=== PATIENT | male | born 1965 | race Caucasian/White ===

== ENCOUNTER 2017-02-14 14:52 | Emergency (ER) | payer OTHER, MEDICAID ==
--- NOTE | 2017-02-14 15:33 | EDPHY ---
H & P Stated Complaint: back pain x 1 wk Time Seen by Provider: 02/14/17 15:32 HPI/ROS: HPI: This is a 51-year-old male who presents with Chief Complaint: back pain x 1 wk Location: Lumbar back Quality: Aching pain Duration: 1 week Signs and Symptoms: No bleeding, no radiation, no numbness, no weakness, no tingling, no incontinence, no decreased range of motion, no dysuria, no groin or testicular pain Timing: Acute on chronic Severity: Mild Context: Patient is homeless and complains of gradual onset of lower back pain described as dull and aching and at times become sharp and severe especially with flexion and bending activities. The pain is nonradiating. He denies any urinary symptoms. He reports that could was not working. He has been using his massage machine daily with only transient relief. He denies any recent history heavy lifting/injury/Trauma. Patient is ambulatory without any deficits and walked to the ER today by himself. Modifying Factors: [place] transient relief Comment: ROS: see HPI Constitutional: No fever, no chills, no weight loss Eyes: No blurred vision Respiratory: No shortness of breath, no cough Cardiovascular: No chest pain Gastrointestinal: No nausea, no vomiting no diarrhea Genitourinary: No dysuria Extremities: No myalgias Neurologic: No weakness, no numbness Skin: No rashes Hematologic: No bruising, no bleeding MEDICAL/SURGICAL/SOCIAL HISTORY: Medical history: IDDM, HTN, HIGH CHOL,GERD, LEG PAIN, RESTLESS LEG SYNDROME, DEPRESSION Surgical history: Denies Social history: homeless CONSTITUTIONAL: Obese extremely well-appearing adult white male, awake and alert, no obvious distress HEENT: Atraumatic and normocephalic, PERRL, EOMI. Tympanic membranes clear. No tympanic membrane rupture. Nares patent; no septal hematoma. Oropharynx clear, no exudate and moist pink mucosa. Airway patent. No lymphadenopathy. NECK: supple, no midline tenderness, flexion 45 degrees, extension 45 degrees, right and left lateral flexion 45 degrees. No meningismus. Cardiovascular: Normal S1/S2, regular rate, regular rhythm, without murmur rub or gallop. PULMONARY/CHEST: Symmetrical and nontender. Clear to auscultation bilaterally. Good air movement. No accessory muscle usage. ABDOMEN: Soft, nondistended, nontender, no rebound, no guarding, no peritoneal signs, no masses or organomegaly. No CVAT. PELVIC: no pain with rocking; bilateral hips flexion 125 degrees, extension 30 degrees, with no pain internal rotation and no pain external rotation. BACK: No midline tenderness, mild reproducible bilateral paraspinous muscle lumbar tenderness with palpation, no paraspinous spasm, deep tendon reflexes 2/2 , no pain with straight leg raise. Lumbar has relatively good flexion extension and bilateral rotation. EXTREMITIES: 2/2 pulses, no deformities, no clubbing, no cyanosis or edema. NEUROLOGICAL: no focal neuro deficits. GCS 15. Ambulatory without deficits SKIN: Warm and dry, no erythema. no rash. Good capillary refill. Source: Patient Exam Limitations: No limitations - Personal History Current Tetanus/Diphtheria Vaccine: Unsure Current Tetanus Diphtheria and Acellular Pertussis (TDAP): Unsure - Medical/Surgical History Hx Asthma: Yes Hx Chronic Respiratory Disease: No Hx Diabetes: Yes Hx Cardiac Disease: No Hx Renal Disease: No Hx Cirrhosis: No Hx Alcoholism: No Hx HIV/AIDS: No Hx Splenectomy or Spleen Trauma: No Other PMH: IDDM,HTN,HIGHH CHOL,GERD, LEG PAIN .RESTLESS LEG SYNDROME, DEPRESSION - Social History Smoking Status: Never smoked Constitutional: Initial Vital Signs Temperature (C) 36.7 C 02/14/17 15:11 Heart Rate 91 02/14/17 15:11 Respiratory Rate 16 02/14/17 15:11 Blood Pressure 129/92 H 02/14/17 15:11 O2 Sat (%) 92 02/14/17 15:11 O2 Delivery Mode Room Air Allergies/Adverse Reactions: No Known Allergies Allergy (Verified 02/14/17 15:10) Home Medications: Medication Instructions Recorded Albuterol [Proventil] 2 inh IH Q4 PRN #1 aerosol 04/03/14 Doxycycline Hyclate [Vibramycin 100 mg PO BID #14 capsule 04/03/14 100 MG (*)] Gabapentin [Neurontin 300 MG (*)] 300 mg PO TID #0 cap 04/03/14 HYDROcodone/APAP 10325 [[place] 1 tab PO Q6 PRN #10 tab 04/03/14 10/325 (*)] Insulin Detemir [Levemir] 100 unit SQ AD #2 vial 04/03/14 Insulin Lispro [Humalog] 0 unit SQ AD #2 vial 04/03/14 Lisinopril [Zestril 40 mg (*)] 40 mg PO BID #30 tab 04/03/14 Metformin HCl [Metformin 1000 mg] 1,000 mg PO BIDMEAL #60 tablet 04/03/14 Omeprazole [Prilosec 20 mg] 40 mg PO DAILY #30 capsule. 04/03/14 Simvastatin [Zocor] 40 mg PO DAILY@1800 #30 tablet 04/03/14 Cephalexin [Keflex] 500 mg PO TID 10 Days cap 10/17/15 Metaxalone [Skelaxin 800 mg (*)] 800 mg PO TID PRN #12 tab 02/14/17 traMADol [Ultram 50 mg (*)] 50 mg PO Q4 PRN #12 tab 02/14/17 Medical Decision Making - Diagnostics Imaging Results: Imaging Impressions Lumbar Spine X-Ray 02/14/17 15:38 Impression: Radiographically unchanged from 01/10/2014. ED Course/Re-evaluation: Lumbar spinal x-rays, IM medications ordered ordered Not a good candidate for steroids due to insulin dependent diabetes mellitus. Lumbar spinal x-rays per my read show degenerative disc disease and narrowing at L5-S1 No signs of neurovascular compromise/tenting of skin/compartment syndrome/ extremities and joints examined above and below area of concern and are neurovascularly intact. Adequate relief of pain at discharge. Differential Diagnosis: Back pain including but not limited to muscular pain, herniated disc, spine fracture, intra-abdominal causes and urinary tract infection. - Data Points Medications Given: Discontinued Medications Diazepam (Valium Injection) 5 mg IM EDNOW ONE Stop: 02/14/17 15:54 Last Admin: 02/14/17 16:01 Dose: 5 mg Departure - Departure Disposition: Home, Routine, Self-Care Clinical Impression: Lumbar degenerative disc disease Lumbar strain Qualifiers: Encounter type: initial encounter Qualified Code(s): S39.012A - Strain of muscle, fascia and tendon of lower back, initial encounter Condition: Good Instructions: Low Back Strain (ED), Degenerative Disc Disease (ED) Additional Instructions: If symptoms continue to persist over the next week, please follow-up with Neurosurgery for further evaluation and recommendations which may include MRI of your lumbar spine, physical therapy, or Lumbar LOC. Referrals: NONE *PRIMARY CARE P,. [Primary Care Provider] - As per Instructions Juan Mathews MD [Medical Doctor] - As per Instructions Prescriptions: Metaxalone [Skelaxin 800 mg (*)] 800 mg PO TID PRN #12 tab PRN Reason: Spasms traMADol [Ultram 50 mg (*)] 50 mg PO Q4 PRN #12 tab PRN Reason: Pain, Severe
[2017-02-14] MEDS ORDERED: DIAZEPAM 10 MG/2 ML SYR IM ONE (15:53)
[2017-02-14 16:33] VITALS: BP 132/98; PULSE 85; RESP 18; TEMP 98.6; O2SAT 96
== END 2017-02-14 16:30 | disposition home or self-care (01) ==
DX: S39.012A Strain of muscle, fascia and tendon of lower back, initial encounter (principal); M51.36 Other intervertebral disc degeneration, lumbar region; E11.9 Type 2 diabetes mellitus without complications; I10 Essential (primary) hypertension; J45.909 Unspecified asthma, uncomplicated; Z79.4 Long term (current) use of insulin; Z79.84 Long term (current) use of oral hypoglycemic drugs; X50.1XXA Overexertion from prolonged static or awkward postures, initial encounter; Y99.8 Other external cause status; Y93.89 Activity, other specified